=== PATIENT | female | born 1980 | race Caucasian/White ===

== ENCOUNTER 2017-05-12 15:46 | Emergency (ER) | payer OTHER ==
[~2017-05-12] VITALS: Ht 154.9 cm; Wt 70.3 kg
[2017-05-12 16:19] VITALS: BP 135/69
--- NOTE | 2017-05-12 19:33 | NUR ---
TO ER OF2
--- NOTE | 2017-05-12 19:40 | NUR ---
PATIENT PRESENTS TO ED WITH URINARY BURNING X 1 WEEK . PT DENIES N/V/D; SKIN IS PINK/WARM/DRY; AAOX4 WITH EVEN AND STEADY GAIT; LUNGS CLEAR BL; HR EVEN AND REGULAR; PT DENIES ANY FEVER, CP, SOB, OR COUGH AT THIS TIME; PATIENT STATES PAIN OF 8/10 AT THIS TIME; VSS; PATIENT POSITIONED FOR COMFORT; HOB ELEVATED; BEDRAILS UP X2; BED DOWN. ER MD MADE AWARE OF PT STATUS.
--- NOTE | 2017-05-12 20:50 | NUR ---
Patient being evaluated by physician.
[2017-05-12 20:57] VITALS: BP 127/71
--- NOTE | 2017-05-12 20:58 | NUR ---
Patient discharged with v/s stable. Written and verbal after care instructions given and explained. Patient alert, oriented and verbalized understanding of instructions. Ambulatory with steady gait. All questions addressed prior to discharge. ID band removed. Patient advised to follow up with PMD. Rx of CIPRO 500MG given. Patient educated on indication of medication including possible reaction and side effects. Opportunity to ask questions provided and answered.
[2017-05-12 23:20] LABS: APPEARANCE,URINE CLEAR (CLEAR); BILIRUBIN,URINE NEGATIVE (NEGATIVE); BLOOD, URINE 3+ (NEGATIVE); COLOR,URINE YELLOW (YELLOW); LEUKOCYTE ESTERASE ,URINE TRACE (NEGATIVE); NITRITE, URINE NEGATIVE (NEGATIVE); PROTEIN,URINE NEGATIVE (NEGATIVE); UGLUCOSE NEGATIVE (NEGATIVE); UROBILINOGEN,URINE 0.2 EU/dL (0.2 - 1)
[2017-05-12 23:34] LABS: RBC,URINE 3-10 (FEW) /HPF (0-5)
[2017-05-12 23:35] LABS: BACTERIA,URINE 2+ /HPF (None Seen)
== END 2017-05-12 20:58 | disposition home or self-care (01) ==
LOC: MED 15:46
DX: N39.0 Urinary tract infection, site not specified (principal); R03.0 Elevated blood-pressure reading, without diagnosis of hypertension; H92.03 Otalgia, bilateral
CPT/HCPCS: 81001; 81025; 87086; 99284

== ENCOUNTER 2019-02-18 15:05 | Emergency (ER) | payer BC, OTHER ==
[~2019-02-18] VITALS: Ht 152.4 cm; Wt 71.2 kg
[2019-02-18 15:10] VITALS: BP 115/75
[2019-02-18] MEDS ORDERED: KETOROLAC 60 MG/2 ML VIAL IM ONE (15:30)
--- NOTE | 2019-02-18 16:02 | NUR ---
PATIENT PRESENTS TO ED WITH pt c/o constant pain and worsening pain on right inguinal area when laying or positioning on that side s/p mechanica fall x 1 wk lower back pain radiaing right inguinal area----denies any medical history . DENIES N/V/D; SKIN IS PINK/WARM/DRY; AAOX4 WITH EVEN AND STEADY GAIT; LUNGS CLEAR BL; HR EVEN AND REGULAR; PT DENIES ANY FEVER, CP, SOB, OR COUGH AT THIS TIME; PATIENT STATES PAIN OF 8/10 AT THIS TIME; VSS; PATIENT POSITIONED FOR COMFORT; HOB ELEVATED; BEDRAILS UP X2; BED DOWN. ER MD MADE AWARE OF PT STATUS.
--- NOTE | 2019-02-18 17:23 | NUR ---
jinny ultrasound stated she sent paperwork 5 mins ago for read---but image appears [facility] notified
--- NOTE | 2019-02-18 17:58 | NUR ---
Patient discharged with v/s stable. Written and verbal after care instructions given and explained. Patient alert, oriented and verbalized understanding of instructions. Ambulatory with steady gait. All questions addressed prior to discharge. ID band removed. Patient advised to follow up with PMD. Rx of keflex/ ibuprofen given. Patient educated on indication of medication including possible reaction and side effects. Opportunity to ask questions provided and answered.
[2019-02-18 17:59] VITALS: BP 114/78
== END 2019-02-18 17:58 | disposition home or self-care (01) ==
LOC: MED 15:05
DX: N39.0 Urinary tract infection, site not specified (principal)
CPT/HCPCS: 76770; 81002; 81025; 96372; 99284; J1885; Q0092